=== PATIENT | male | born 1955 | race Caucasian/White ===

== ENCOUNTER 2017-10-08 10:14 | Observation (INO) | payer OTHER ==
[2017-10-08] MEDS ORDERED: NS 0.9% 1000 ML* 1,000 ML IV ONE (10:24)
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
[2017-10-08 10:51] LABS: ABS Basophils 0.1 10^3/ul (0-0.2); ABS Eosinophils 0.3 10^3/ul (0-0.6); ABS Lymphocytes 1.6 10^3/ul (1.0-4.8); ABS Monocytes 0.6 10^3/ul (0-0.8); ABS Neutrophils 4.5 10^3/ul (1.5-7.7); ABS Nucleated RBC 0 10^3/ul; Eosinophil % 3.6 % (0-6); Hematocrit 49 % (42-52); Hemoglobin 16.8 g/dl (14.0-18.0); Lymphocyte % 22.7 % (25-47); Mean Corpuscular HGB Conc 35 g/dl (31-36); Mean Corpuscular Hemoglobin 33 pg (27-31); Mean Corpuscular Volume 95 fL (80-94); Mean Platelet Volume 8.6 um3 (7.4-10.4); Nucleated Red Blood Cells % 0; Platelet Count 238 10^3/ul (150-450); Red Blood Count 5.12 10^6/ul (4.00-5.40); Red Cell Distribution Width 14 % (10.5-15)
[2017-10-08 11:00] LABS: INR 0.84 (0.77-1.02)
--- NOTE | 2017-10-08 11:08 | RAD ---
INDICATION: Tachycardia and hypertension COMPARISON: Chest x-ray dated March 21, 2017 TECHNIQUE: Single AP portable view of the chest was obtained. FINDINGS: Image quality is compromised due to the relative inferiority of a portable chest x-ray. The heart and mediastinum exhibit normal size and contour. The lungs are grossly clear. There is no evidence of a large pleural effusion. Visualized bones are normal for the patient's age. IMPRESSION: No radiographic evidence for acute cardiopulmonary abnormality on this portable chest x-ray.
[2017-10-08 11:32] LABS: EGFR Non-African American 85.8 (>60)
[2017-10-08] MEDS ORDERED: Acetaminophen TAB* 325 MG PO PRN (11:37)
[2017-10-08] MEDS ORDERED: Metoprolol Tartrate TAB* 25 MG PO SCH (12:00)
[2017-10-08] MEDS: Lisinopril TAB* 10 MG PO SCH (12:08)
[2017-10-08] MEDS: amLODIPine TAB* 5 MG PO SCH (12:08)
[2017-10-08] MEDS: Heparin VIAL(*) 5000 UNITS/ML VIAL (FIVE THOUSAND) SUBCUT SCH ×2 (13:31→20:34)
--- NOTE | 2017-10-08 15:00 | ECHO ---
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 Technical Comments: The study quality is good. Completed at 1445. Left Ventricle: The left ventricular chamber size is normal. Mild concentric left ventricular hypertrophy is observed. Left ventricular systolic function is at the lower limits of normal. subtle relative hypokinesis of the posterior and posterolateral segments. The estimated ejection fraction is 50-55%. Abnormal left ventricular diastolic function is observed. Abnormal left ventricular diastolic filling is observed, consistent with impaired relaxation. The mid anterolateral, mid inferolateral, and apical lateral wall segments are hypokinetic (score 2). Overall wallmotion score index is 1.19 Left Atrium: The left atrium is mildly dilated. Right Ventricle: Moderator Band present. The right ventricle is mild to moderately dilated. The right ventricular global systolic function is low normal. Right Atrium: The right atrium is mild to moderately dilated. Aortic Valve: The aortic valve is trileaflet. The aortic valve leaflets are mildly thickened. There is no evidence of aortic regurgitation. There is no evidence of aortic stenosis. Mitral Valve: The mitral valve leaflets are mildly thickened. There is a trace of mitral regurgitation. There is no evidence of mitral stenosis. Tricuspid Valve: The tricuspid valve leaflets are normal. There is a physiologic tricuspid regurgitation. The right ventricular systolic pressure is estimated at 24 mmHg. There is no tricuspid stenosis. Pulmonic Valve: The pulmonic valve appears normal. There is a trace pulmonic regurgitation. There is no pulmonic stenosis. Pericardium: There is no significant pericardial effusion. Aorta: There is mild dilatation of the ascending aorta. There is no dilatation of the aortic arch. The aortic root is normal in size. Pulmonary Artery: The main pulmonary artery appears normal. Venous: The inferior vena cava is dilated. There is a greater than 50% respiratory change in the inferior vena cava dimension. Summary: There was not any prior study for comparison. Conclusions Mild concentric left ventricular hypertrophy is observed. Left ventricular systolic function is at the lower limits of normal with subtle relative hypokinesis of the posterior and posterolateral segments. The estimated ejection fraction is 50-55%. Abnormal left ventricular diastolic filling is observed, consistent with impaired relaxation. The left atrium is mildly dilated. The right ventricle is mild to moderately dilated. The right ventricular global systolic function is low normal. The right atrium is mild to moderately dilated. The aortic valve leaflets are mildly thickened. There is a trace of mitral regurgitation. There is a physiologic tricuspid regurgitation. There is mild dilatation of the ascending aorta. Measurements Name Value Normal Range RVIDd (AP) 2D 3.1 cm (0.9 - 2.6) RVDdMajor (2D) 5.2 cm (2.2 - 4.4) RAd ISD 4CH 5.2 cm (3.4 - 4.9) RA (A4C)W 5.4 cm (2.9 - 4.6) IVSd (2D) 1.3 cm (0.6 - 1) LVPWd (2D) 1.2 cm (0.6 - 1) LVIDd (2D) 4.3 cm (3.6 - 5.4) LVIDs (2D) 3.2 cm - LV FS (2D) 26 % (25 - 45) Aortic Annulus 2.4 cm (1.4 - 2.6) Ao root diameter (2D) 3.4 cm (2.1 - 3.5) Ascending Ao 3.9 cm (2.1 - 3.4) Aortic arch 3.2 cm (1.8 - 3.4) LA dimension (AP) 2D 4.1 cm (2.3 - 3.8) LAd ISD 4CH 5.4 cm (2.9 - 5.3) LA ISD 4CH W 4.4 cm (2.5 - 4.5) Name Value Normal Range LA ESV BP (A/L) index 29 ml/m2 - Name Value Normal Range MV E-wave Vmax 0.8 m/sec - MV deceleration time 123 msec - MV A-wave Vmax 0.5 m/sec - MV E:A ratio 1.5 ratio - LV septal e' Vmax 0.1 m/sec - LV lateral e' Vmax 0.12 m/sec - LV E:e' septal ratio 8 ratio - LV E:e' lateral ratio 6.67 ratio - Name Value Normal Range AV Vmax 1.4 m/sec - AV VTI 32.3 cm - AV peak gradient 8 mmHg - AV mean gradient 5 mmHg - LVOT Vmax 1.1 m/sec - LVOT VTI 22.6 cm - LVOT peak gradient 5 mmHg - LVOT mean gradient 2 mmHg - KEVIN Vmax 0.5 m/sec - Name Value Normal Range TR Vmax 2 m/sec - TR peak gradient 16 mmHg - RAP 8 mmHg - RVSP 24 mmHg - IVC diameter 2.1 cm - Name Value Normal Range PV Vmax 0.9 m/sec - PV peak gradient 3 mmHg - Wallmotion BAS Normal BA Normal BAL Normal SELMA Normal BI Normal BIS Normal MAS Normal MA Normal MAL Hypokinetic MIL Hypokinetic MD Normal MIS Normal Normal AA Normal AL Hypokinetic AI Normal APEX Normal
[2017-10-08 16:49] LABS: Urine Appearance Clear; Urine Blood Negative (Negative); Urine Color Yellow; Urine Ketones Negative (Negative); Urine Protein Negative (Negative); Urine Specific Gravity 1.009 (1.010-1.030); Urine Urobilinogen Negative (Negative)
--- NOTE | 2017-10-08 19:31 | HP ---
CC: YESY Campbell * HISTORY AND PHYSICAL: DATE OF ADMISSION: 10/08/17 PRIMARY CARE PROVIDER: YESY Campbell ATTENDING PHYSICIAN WHILE IN THE HOSPITAL: Dr. Carol Pérez * (report dictated by Curtis Cuenca NP) CHIEF COMPLAINT: Palpitations. HISTORY OF PRESENT ILLNESS: Mr. Sumner is a 62-year-old male patient. He carries a history of SVT, hypertension, hyperlipidemia, and anxiety. He is coming into the ER today. He was n.p.o. for a lab work today. He got up at about 3:15, he took a shower, went to his 's grave. His in February of 2017. He was feeling anxious and nervous about the blood work, having a needle poke. He was sitting in the waiting room, he started having a headache. He was feeling palpitations. He was feeling like he was going to faint. His name was called, and he got up with help of the nursing staff and they brought him to the back for the blood work. They checked his vitals. They noted that he was very hypertensive. In addition to this, also his heart rate was over 170 beats a minute. EKG was obtained. Initial impression according to the notes was AFib, but when looking at the EKG, it looks very regular and appears to be more of an SVT-type picture. The patient denied having any chest pain. He said he did not feel the palpitations. He had palpitations according to notes last week. He took a nitro for it. He does state that he is scheduled for a stress test tomorrow and he was getting routine lab works through his primary. He was sent here to the ER. By the time he got to the ER, he broke out of the SVT and was back in a normal sinus rhythm. He says he is feeling better. He says also that he did not take any of his blood pressure meds this morning and he said he recently was started on Wellbutrin. He says that it helped him to quit smoking. He came into the ED, he was evaluated, there was concern because of the SVT, the fact that he was presyncopal, the fact that he took nitro last week, there was concern that there may be a component of ACS here, so Dr. Patel asked us to evaluate for admission. PAST MEDICAL HISTORY: Significant for: 1. Hypertension. 2. SVT. 3. Anxiety. 4. Hyperlipidemia. PAST SURGICAL HISTORY: 1. He says he has had an ablation. 2. He has had surgery to his left arm from an accident at work. MEDICATIONS: Home meds according to the [facility] list include: 1. Crestor 40 mg daily. 2. Protonix 40 mg daily. 3. Nitro 0.4 mg sublingual every 5 minutes p.r.n. chest pain x3. 4. Lisinopril 40 mg daily. 5. Wellbutrin 150 mg p.o. daily. He is actually still on the daily dosing. 6. Vitamin D 2000 units p.o. daily. 7. Norvasc 5 mg daily. 8. Albuterol 2 puffs inhaled every 4 hours as needed. ALLERGIES TO MEDICATIONS: Include PENICILLIN. FAMILY HISTORY: His mother's history is unknown; he said she at a young age. Father, he said from old age. SOCIAL HISTORY: He is about a [id number]-a-day smoker. He had a cigarette today. He does not drink alcohol very often. He denies recreational drug use. His surrogate decision maker is his friend. REVIEW OF SYSTEMS: There is no documented fever. He is denying having any significant weight change. There was no double vision. He denies having any ear discharge. He denies having any rhinorrhea. There is no sore throat. No thyroid enlargement. Denies having any chest pain currently. Denies having any abdominal pain. There was no nausea. There is no vomiting. There is no dysuria, no frequency. There was no seizure, there was no loss of consciousness. No pruritus, and no skin ulcerations. Review of 14 systems completed, all others negative. PHYSICAL EXAMINATION GENERAL: At this time, Mr. Sumner is a 62-year-old male patient. He is sitting in the ED stretcher. He does not appear to be in any acute distress. VITAL SIGNS: His blood pressure now is 189/107, pulse 72, respirations 18, O2 sat 95%, and temperature 98.8. HEENT: Head atraumatic and normocephalic. Eyes, EOMs are intact. Sclerae anicteric and not pale. Throat: Oral mucosa appears to be moist. No oropharyngeal erythema. NECK: Supple. LUNGS: Clear to auscultation bilaterally. No wheezes, rales, or rhonchi. HEART: Sounds S1 and S2. Regular rate and rhythm. No murmurs, rubs, or gallops. ABDOMEN: Soft, flat, and nontender. Bowel sounds are present. EXTREMITIES: Pulses were 2+ throughout. He is moving all 4 extremities with 5/ 5 strength. NEUROLOGIC: The patient is awake, alert, he is oriented x3. Tongue midline. Paint Roller Covers Supervisor are equal. No gross focal deficits. SKIN: Grossly intact. DIAGNOSTIC STUDIES/LAB DATA: Reveal a WBC of 7.0, RBC of 5.12, hemoglobin of 16.8, hematocrit of 49, platelet count is 238. His INR was 0.84, PTT of 29.7, D -dimer was less than 200. His sodium was 136, his potassium was 4.4, chloride of 104, bicarb 25, BUN 12, creatinine 0.90, glucose of 104, lactate 0.8, calcium 9.6, mag 2.1. Total bili 0.6, AST 18, ALT 19, alk phos 58. CK 102, CK- MB 1.7. Troponin 0.01. BNP at 35. TSH was normal. Chest x-ray showed no radiographic evidence for acute cardiopulmonary abnormality on the portable x-ray. EKG done here today shows a normal sinus rhythm, rate of 88. He has LVH. No ST elevations or T-wave inversions were noted. No previous for comparison with the exception of the one sent over from the [facility], which showed a heart rate of 170 , which did appear to be regular, appears to be an SVT under my interpretation. Old medical records were reviewed. ASSESSMENT AND PLAN: Mr. Sumner is a 62-year-old male patient coming in to the ED today with complaints of dizziness, palpitations. On evaluation at the [facility], found to be in supraventricular tachycardia. About a week ago, he was having palpitations, he took nitro, which he said helped. He denied having any chest pain today with this episode. We were asked to evaluate for admission. He will be admitted under observation status for: 1. Supraventricular tachycardia. I suspect this is a cause of his symptoms. He did feel dizzy with this, certainly of the heart rate. At the [facility], his heart rate was faster. He broke on his own. He had an ablation in the past at [facility]. I would like to get those records. It is concerning that he took nitro a week ago, so I think a stress test is warranted. I have ordered an exercise chemical nuclear stress test. I will check his lipids, his A1c, we will cycle his troponins. We will get a serial EKG in the morning and I have also ordered an echo for the patient as well and we will continue to monitor. Certainly, I was researching Wellbutrin and it is noted that that medication can certainly cause tachycardia in greater than 10%. In addition to this, it can also cause cardiac arrhythmia. Also, it has been known to cause anxiety and nervousness. The patient had been exhibiting these symptoms since starting the med about 4 days ago, so I am holding this medication and I will refer to his primary for further recommendations for smoking cessation. His electrolytes appear to be stable and his TSH was normal as well. 2. Hypertension. It is not well controlled right now. His says he did not take his blood pressure meds this morning. I am giving him his lisinopril, his Norvasc. I am also going to go ahead and give him metoprolol to help with the supraventricular tachycardia. 3. Hyperlipidemia. We will continue Crestor. 4. Anxiety. Continue with supportive care. Follow up with his primary. 5. DVT prophylaxis. I did order heparin subcu. 6. Code status. He is a full code. 7. Fluids, electrolytes, and nutrition. He can have a heart-healthy diet. TIME SPENT: On the admission was approximately 60 minutes, greater than half of the time was spent [id number] with the patient obtaining my history and physical; other half the time was spent going over the plan of care with the patient and implementing the plan of care. I did discuss the plan of care with my attending, Dr. Pérez; she is in agreement. CURTIS CUENCA, CLAR[place] [id number]/[facility] #: [id number] SHOLA
[2017-10-09] MEDS: Heparin VIAL(*) 5000 UNITS/ML VIAL (FIVE THOUSAND) SUBCUT SCH (05:11)
[2017-10-09 07:15] LABS: Hematocrit 43 % (42-52); Hemoglobin 15.4 g/dl (14.0-18.0); Mean Corpuscular HGB Conc 36 g/dl (31-36); Mean Corpuscular Hemoglobin 34 pg (27-31); Mean Corpuscular Volume 95 fL (80-94); Mean Platelet Volume 9.1 um3 (7.4-10.4); Platelet Count 200 10^3/ul (150-450); Red Blood Count 4.58 10^6/ul (4.00-5.40); Red Cell Distribution Width 14 % (10.5-15); White Blood Count 5.8 10^3/ul (3.5-10.8)
[2017-10-09 07:18] LABS: INR 0.9 (0.77-1.02)
[2017-10-09] MEDS ORDERED: Omeprazole CAP* 20 MG PO SCH (07:30)
[2017-10-09 07:40] LABS: EGFR Non-African American 86.9 (>60)
[2017-10-09] MEDS ORDERED: LORazepam INJ* 2 MG/ML 1 ML VIAL IV PUSH ONE (08:00)
[2017-10-09 08:45] LABS: ABS Basophils 0.1 10^3/ul (0-0.2); ABS Eosinophils 0.4 10^3/ul (0-0.6); ABS Lymphocytes 1.4 10^3/ul (1.0-4.8); ABS Monocytes 0.5 10^3/ul (0-0.8); ABS Neutrophils 3.4 10^3/ul (1.5-7.7); ABS Nucleated RBC 0 10^3/ul; Eosinophil % 6.3 % (0-6); Lymphocyte % 24.2 % (25-47); Nucleated Red Blood Cells % 0.1
[2017-10-09] MEDS ORDERED: Aspirin 81 mg CHEW TAB* 81 MG TAB.CHEW PO SCH (09:00)
[2017-10-09] MEDS ORDERED: Atorvastatin* 80 MG TAB PO SCH (09:00)
--- NOTE | 2017-10-09 12:19 | RAD ---
Edited for charges. INDICATION: SVT. Presyncope. Chest pain and shortness of breath. Hypertension, obesity, tobacco use. COMPARISON: No relevant prior exams available on the [facility] [place]. TECHNIQUE: 10.500 mCi of Tc-99m Myoview were administered IV. SPECT images of the heart were obtained. Later on the same day. Under the direction of Dr. Gomez, an exercise stress test was performed. The patient achieved a peak heart rate of 159 bpm, 90 % of the age- predicted maximum. Subsequently, the patient was given an IV injection of 25.590 mCi Tc- 99m Myoview. SPECT images of the heart were obtained and a gated wall motion study was performed. CT for attenuation correction performed due to claustrophobia. FINDINGS: Gated wall motion images were obtained at stress and demonstrate wall motion to be within normal limits. The calculated left ventricular ejection fraction is 56 % at stress. Estimated LEFT ventricular end diastolic volume is 120 mL. TID 0.99. Lack of CT for attenuation correction limits assessment. Grossly fixed perfusion defect involving the mid to basilar inferior wall is most suspicious for diaphragmatic attenuation. Mild fixed apical thinning noted. No stress-induced reversible perfusion defect evident to suggest ischemia. IMPRESSION: #. Limited exam without compelling evidence for stress-induced ischemia. #. Grossly fixed perfusion defect involving the mid to basilar inferior wall is most suspicious for diaphragmatic attenuation. #. Normal range estimated LEFT ventricular ejection fraction. Borderline dilated LEFT ventricle with estimated end-diastolic volume of 120 mL. ASSESSMENT: Low risk based on nuclear portion. Based on imaging criteria from ACC/AHA 2002 Guideline Update for the Management of Patients With Chronic Stable Angina Table 23. Noninvasive Risk Stratification. MTDD
[2017-10-09] MEDS: amLODIPine TAB* 5 MG PO SCH (12:25)
[2017-10-09] MEDS: Lisinopril TAB* 10 MG PO SCH (12:25)
[2017-10-09 14:13] VITALS: BP 105/64
--- NOTE | 2017-10-10 04:09 | DS ---
CC: Dr. Pérez; Dr. Patel; Dr. Chowdary; Dr. Sanderson; YESY Campbell * DISCHARGE SUMMARY: DATE OF ADMISSION: DATE OF DISCHARGE: 10/09/17 DISCHARGE DIAGNOSES: Are as follows: 1. Supraventricular tachycardia, spontaneously resolved possibly secondary to Wellbutrin use. 2. Hypertension, improved control. 3. Hyperlipidemia. 4. Anxiety. HISTORY OF PRESENT ILLNESS/HOSPITAL COURSE: The patient is a 62-year-old gentleman with history of hypertension; anxiety; hyperlipidemia; and SVT status post ablation, he mentioned that around 2002 in [place], although he is unable to provide any further details. He mentioned that his in February 2017 and since then he has been feeling anxious and nervous and especially about the blood work and needlestick that he was scheduled for yesterday. More specifically, he was sitting in the waiting room and he started having a headache and complained of some palpitations and felt like he was going to "faint." When his name was called, he got up to go to the clinic to have his blood drawn and he was noted to be quite hypertensive and was found to have tachycardia with the heart rate 170 beats per minute range. He was then diagnosed to have an SVT picture and hence, EMS was called and by the time, he got to the ER, he had spontaneously resolved back to normal sinus. During his observation stay, his heart rate had been well controlled and in fact sometimes in sinus bradycardia in the 50 to 60 range. He also had a stress test done which showed low risk based on nuclear portion and although, 2- D echo revealed a subtle relative hypokinesis of the posterior and posterolateral segments. The nuclear portion of his stress test suggested that this is likely a diaphragmatic attenuation given grossly fixed perfusion defect involving the mid basilar to inferior wall. There was no compelling evidence of stress-induced ischemia by his stress test. I have spoken with Dr. Sanderson prior to his discharge today and relayed the above narrative and given the patient wants to go home. The patient can safely be followed up by Dr. Sanderson at home for a presumptive diagnosis of SVT likely induced by Wellbutrin for a patient that is at high risk for SVT given his history of ablation in the past. The patient also mentioned that he would like to see someone "at [place]" given that he lives closer to [place] than it would be in [place] in [place]. The patient had been advised to follow up and/or call his PCP within 3 days post discharge and he was advised that if he is having any problems and/or if his symptoms worsen, to call his PCP first to see if his concerns can be addressed in a timely manner. If not, or if he had been advised to go to the ER , he was advised to discuss with his PCP whether [facility] followup is appropriate versus ER. He was advised to call [facility] if deemed appropriate. Dr. Sanderson reviewed his rhythm strips prior to his D/C. He was advised to call [phone] to follow up with his appointment with Dr. Sanderson. He was further advised not to take any more Wellbutrin and to call my office if he has questions, concerns, or further clarifications regarding his discharge plans and/or prescriptions and to take his medications as prescribed. DISCHARGE MEDICATIONS: Are as follows: 1. Amlodipine 5 mg p.o. daily. 2. Lisinopril 40 mg p.o. daily. 3. Pantoprazole 40 mg p.o. q.a.m. 4. Rosuvastatin 40 mg p.o. daily. 5. Albuterol HFA 2 puffs inhalation q.4 hours. 6. Cholecalciferol 2000 units p.o. daily. 7. Nitroglycerin tablets 0.4 mg sublingual q.5 minutes p.r.n. REVIEW OF SYSTEMS: On review of systems, the patient denied any headaches, dizziness, fevers, chills, nausea, vomiting, chest pain, shortness of breath, increased cough and sputum production, abdominal pain, diarrhea, constipation, pain and/or increased frequency on urination, myalgias, arthralgias, throat pain , or new skin lesions. The rest of the 14-point review of systems were otherwise unremarkable. PHYSICAL EXAMINATION: Reveals the most recent vital signs of records with blood pressure of 105/64, 97.4 degrees Fahrenheit, 55 beats per minute heart rate, 18 per minute respiratory rate, saturating at 98%. General Appearance: The patient is awake, alert, and oriented x3, not in acute distress. HEENT: Normocephalic, atraumatic. PERRLA. Extraocular muscles intact. Negative for icterus. Moist oral mucosa. Negative throat erythema. Neck is soft, supple, with no cervical lymphadenopathy. No JVD. Heart: S1, S2. Regular rate and rhythm. Slightly bradycardic. No rubs, no gallops appreciated. Abdomen is soft, nondistended, nontender. Normoactive bowel sounds 4xq. Extremities: No cyanosis, clubbing, or edema. Psychiatric: No active psychosis, depression, suicidal or homicidal ideations, although the patient has blank affect. TIME SPENT: The total time spent evaluating the patient, reviewing pertinent data and appropriate documentation is greater than 30 minutes. [id number]/[facility] #: [id number] MTDD
--- NOTE | 2017-10-10 12:17 | PN ---
Work Excuse - Work Note Work Note: This is to certify that Mr. Sumner has been seen and evaluated in our facility on 10/08/17 and was subsequently discharged on 10/09/17 with the caveat that he cannot overtly exert himself until evaluated by his hearing therapy director on 10/15/17. Once appropriately evaluated, I will defer with either Dr. Sanderson (his hearing therapy director) or his PCP to re-evaluate him for work related purposes. Sincerely, Magno Forrest MD [address]
== END 2017-10-09 16:22 | disposition home or self-care (01) ==
LOC: ED 10:14 → MEDTELE 11:53
PROVIDERS: ADMIT Hospitalist; ATTEND Student in an Organized Health Care Education/Training Program
DX: I47.1 Supraventricular tachycardia (principal); I10 Essential (primary) hypertension; E78.5 Hyperlipidemia, unspecified; F41.9 Anxiety disorder, unspecified; R51 Headache; F17.210 Nicotine dependence, cigarettes, uncomplicated
CPT/HCPCS: 36415; 71045; 78452; 80048; 80053; 80061; 80307; 81003; 82550; 82553; 83036; 83605; 83735; 83880; 84436; 84443; 84484; 85025; 85379; 85610; 85730; 93005; 93017; 93306; 96360; 99283; A9270-GY; A9502; G0378; J1644; J2060